=== PATIENT | male | born 1985 | race Caucasian/White ===

== ENCOUNTER 2020-09-13 18:41 | Inpatient (IN) ==
[2020-09-13] MEDS ORDERED: Ondansetron 4 MG/2 ML VIAL IVP ONE (19:13)
[2020-09-13] MEDS ORDERED: lisinopriL 20 MG TABLET PO STA (19:14)
[2020-09-13] MEDS ORDERED: 0.9 % Sodium Chloride 1,000 ML IVC ONE (19:32)
[2020-09-13 19:53] LABS: BUN/Creatinine Ratio 10 (6-26); Blood Urea Nitrogen 45 mg/dL (6-20); Calcium 8.8 mg/dL (8.6-10.3); Carbon Dioxide 28 mEq/L (23-29); Chloride 103 mEq/L (98-107); Glucose 203 mg/dL (70-105); Osmolality,Calculated 303 (280-300); Potassium 3.8 mEq/L (3.5-5.1); Sodium 138 mEq/L (136-145); eGFR For African Americans 18 (> 60); eGFR For Non-African Americans 15 (> 60)
[2020-09-13 20:36] LABS: Basophils # 0.1 K/mcL (0.0-0.2); Eosinophils # 0.4 K/mcL (0.0-0.6); Eosinophils % 3.2 %; Hematocrit 35.2 % (37.5-50.1); Hemoglobin 12.8 g/dL (12.9-16.9); Immature Granulocytes % 0.5 % (0-4); Lymphocytes # 2.2 K/mcL (0.6-4.6); Lymphocytes % 18.2 %; Mean Corpuscular HGB Conc 36.4 g/dL (31.6-35.5); Mean Corpuscular Hemoglobin 28.1 pg (28.0-33.3); Mean Corpuscular Volume 77.4 fL (83.0-100.0); Mean Platelet Volume 10.6 fL (9.4-12.4); Monocytes # 0.7 K/mcL (0.0-1.3); Monocytes % 5.9 %; Neutrophils # 8.8 K/mcL (1.6-8.9); Platelet Count 357 K/mcL (140-400); Red Blood Count 4.55 M/mcL (4.19-5.50); Red Cell Distribution Width 13.2 % (11.5-14.5); Segmented Neutrophils % 71.2 %; White Blood Count 12.3 K/mcL (4.3-11.1)
[2020-09-13 20:45] LABS: Bacteria,Urine Few per hpf (None-Few); Bilirubin,Urine Negative (Negative); Blood,Urine Moderate (Negative); Clarity,Urine Clear (Clear); Color,Urine Light-Yellow (Yellow); Glucose,Urine (UA) 150 mg/dL (Normal); Hyaline Casts,Urine Few per lpf (None Seen); Ketones,Urine Trace mg/dL (Negative); Leukocyte Esterase,Urine Negative (Negative); Mucus,Urine Few per lpf (None-Few); Nitrite,Urine Negative (Negative); Protein,Urine >=600 mg/dL (Neg-Trace); Specific Gravity,Urine 1.019 (1.010-1.025); Urobilinogen,Urine Normal (Normal)
[2020-09-13] MEDS ORDERED: Naloxone 0.4 MG/ML INJ IVP PRN (21:36)
[2020-09-13] MEDS ORDERED: Ondansetron 4 MG/2 ML VIAL IVP PRN (21:36)
[2020-09-13] MEDS ORDERED: niCARdipine 20 MG/200 ML MLS IVC ONE (21:56)
[2020-09-13] MEDS: niCARdipine 20 MG/200 ML MLS IVC SCH (21:58)
[2020-09-13 22:17] LABS: C-Reactive Protein < 5 mg/L (Less than 10); Creatine Kinase 392 Units/L (30-223); Uric Acid 6.9 mg/dL (2.3-7.6)
[2020-09-14] MEDS ORDERED: D5% in Water 1,000 ML IVC PRN (00:11)
[2020-09-14] MEDS ORDERED: *HR* Dextrose 50 % in Water (Vial) 50 ML VIAL IVP PRN (00:11)
[2020-09-14] MEDS ORDERED: Dextrose Gel 15 GM/37.5 ML TUBE PO PRN ×2 (00:11)
[2020-09-14] MEDS: Insulin LISPRO 300 UNITS/3 ML VIAL SUBQ SCH ×5 (00:48→20:41)
[2020-09-14 01:22] LABS: Sodium, Urine 73.6 mEq/L
[2020-09-14 01:44] LABS: Protein/Creatinine Ratio,Urine 9.38 mg/mg (0.00-0.20)
[2020-09-14] MEDS: Acetaminophen 325 MG TABLET PO PRN ×2 (05:19→11:14)
[2020-09-14 05:32] LABS: Basophils # 0.1 K/mcL (0.0-0.2); Basophils % 0.8 %; Eosinophils # 0.7 K/mcL (0.0-0.6); Eosinophils % 5.6 %; Hematocrit 34.3 % (37.5-50.1); Hemoglobin 12.3 g/dL (12.9-16.9); Immature Granulocytes % 0.3 % (0-4); Lymphocytes # 4.2 K/mcL (0.6-4.6); Lymphocytes % 35.3 %; Mean Corpuscular HGB Conc 35.9 g/dL (31.6-35.5); Mean Corpuscular Hemoglobin 28.3 pg (28.0-33.3); Mean Corpuscular Volume 78.9 fL (83.0-100.0); Mean Platelet Volume 9.9 fL (9.4-12.4); Monocytes # 0.8 K/mcL (0.0-1.3); Monocytes % 6.9 %; Platelet Count 342 K/mcL (140-400); Red Blood Count 4.35 M/mcL (4.19-5.50); Red Cell Distribution Width 13.3 % (11.5-14.5); Segmented Neutrophils % 51.1 %; White Blood Count 11.8 K/mcL (4.3-11.1)
[2020-09-14 05:41] LABS: Prothrombin Time 11.6 Seconds (9.4-12.1)
[2020-09-14 05:43] LABS: Estimated Average Glucose 229 mg/dl; Hemoglobin A1C 9.6 %
[2020-09-14 05:54] LABS: Albumin 2.9 g/dL (3.5-5.7); Albumin/Globulin Ratio 1.1 (1.1-2.2); Bilirubin,Total 0.2 mg/dL (0.3-1.0); Calcium 8.6 mg/dL (8.6-10.3); Chol/HDL Ratio 4.8 (0-4.9); Globulin 2.7 g/dL (2.4-3.5); Magnesium 2.1 mg/dL (1.6-2.6); Potassium 3.3 mEq/L (3.5-5.1); Total Protein 5.6 g/dL (6.4-8.9)
[2020-09-14 06:06] LABS: Thyroid Stimulating Hormone 3.653 mcIU/mL (0.340-5.600)
[2020-09-14 06:16] LABS: Vitamin B12 768 pg/mL (250-1100)
[2020-09-14 07:39] LABS: Hepatitis B Surface Antigen Nonreactive (Nonreactive)
[2020-09-14 08:07] LABS: Hepatitis C Virus Antibody Nonreactive (Nonreactive)
[2020-09-14 08:08] LABS: Hepatitis B Core IgM Nonreactive (Nonreactive)
[2020-09-14 08:10] LABS: Hepatitis A Antibody IgM Nonreactive (Nonreactive)
[2020-09-14] MEDS ORDERED: Loratadine 10 MG TABLET PO PRN (08:59)
[2020-09-14] MEDS: niCARdipine 20 MG/200 ML MLS IVC SCH ×7 (09:46→23:21)
[2020-09-14 09:59] LABS: Complement C3 117 mg/dL (87-200)
[2020-09-14] MEDS: Insulin DETEMIR 100 UNIT/ML X5UNITS SUBQ SCH ×2 (13:00→20:44)
[2020-09-14] MEDS ORDERED: Metoclopramide 10 MG/2 ML VIAL IVP ONE (15:52)
[2020-09-14] MEDS ORDERED: diazePAM 5 MG TABLET PO ONE (15:54)
[2020-09-14] MEDS: cloNIDine HCL 0.1 MG TABLET PO SCH (20:40)
[2020-09-14] MEDS ORDERED: Insulin DETEMIR 100 UNIT/ML X5UNITS SUBQ SCH (21:00)
[2020-09-15] MEDS: niCARdipine 20 MG/200 ML MLS IVC SCH (05:33)
[2020-09-15 06:34] LABS: Hematocrit 31.6 % (37.5-50.1); Mean Corpuscular HGB Conc 34.8 g/dL (31.6-35.5); Mean Corpuscular Hemoglobin 27.6 pg (28.0-33.3); Mean Corpuscular Volume 79.2 fL (83.0-100.0); Mean Platelet Volume 10.3 fL (9.4-12.4); Platelet Count 302 K/mcL (140-400); Red Blood Count 3.99 M/mcL (4.19-5.50); Red Cell Distribution Width 13.5 % (11.5-14.5); White Blood Count 9.9 K/mcL (4.3-11.1)
[2020-09-15 06:52] LABS: Calcium 8.4 mg/dL (8.6-10.3); Potassium 3.7 mEq/L (3.5-5.1)
[2020-09-15] MEDS: NIFEdipine XL (24 HR) 60 MG TAB.ER.24 PO SCH (08:26)
[2020-09-15] MEDS: cloNIDine HCL 0.1 MG TABLET PO SCH ×3 (08:26→19:35)
[2020-09-15] MEDS: Insulin LISPRO 300 UNITS/3 ML VIAL SUBQ SCH ×4 (11:49→19:35)
[2020-09-15] MEDS ORDERED: Insulin DETEMIR 100 UNIT/ML X5UNITS SUBQ SCH (12:00)
[2020-09-15] MEDS: Insulin DETEMIR 100 UNIT/ML X5UNITS SUBQ SCH (16:42)
[2020-09-16 01:48] LABS: Hematocrit 30.6 % (37.5-50.1); Hemoglobin 10.9 g/dL (12.9-16.9); Mean Corpuscular HGB Conc 35.6 g/dL (31.6-35.5); Mean Corpuscular Hemoglobin 28.2 pg (28.0-33.3); Mean Corpuscular Volume 79.1 fL (83.0-100.0); Mean Platelet Volume 10.3 fL (9.4-12.4); Platelet Count 274 K/mcL (140-400); Red Blood Count 3.87 M/mcL (4.19-5.50); Red Cell Distribution Width 13.5 % (11.5-14.5); White Blood Count 10.8 K/mcL (4.3-11.1)
[2020-09-16 02:12] LABS: Potassium 4.2 mEq/L (3.5-5.1)
[2020-09-16 07:03] LABS: ANA IgG by ELISA NONE DETECTED (None Detected)
[2020-09-16 07:43] VITALS: BP 165/107
[2020-09-16] MEDS: NIFEdipine XL (24 HR) 60 MG TAB.ER.24 PO SCH (07:56)
[2020-09-16] MEDS: cloNIDine HCL 0.1 MG TABLET PO SCH (07:56)
[2020-09-16] MEDS: Insulin LISPRO 300 UNITS/3 ML VIAL SUBQ SCH (07:58)
[2020-09-17 09:49] LABS: Metanephrine, Plasma 0.11 nmol/L (0.00-0.49)
[2020-09-17 15:23] LABS: Serine Protease-3 Antibody 10 AU/mL (0-19)
== END 2020-09-16 11:11 | disposition home or self-care (01) | DRG 199 ==
LOC: EMEROOARM 18:41 → 2ANU 18:41 → SUATTDRO 22:04 → ICNU 22:35 → 2ANU 09-15 16:31
PROVIDERS: ADMIT Student in an Organized Health Care Education/Training Program; ATTEND Internal Medicine

== ENCOUNTER 2020-09-27 07:48 | Inpatient (IN) ==
[2020-09-27] MEDS ORDERED: Ondansetron 4 MG/2 ML VIAL IVP ONE (08:18)
[2020-09-27 08:56] LABS: Basophils # 0.1 K/mcL (0.0-0.2); Basophils % 0.7 %; Eosinophils # 0.4 K/mcL (0.0-0.6); Eosinophils % 3.3 %; Hematocrit 34.7 % (37.5-50.1); Hemoglobin 12.4 g/dL (12.9-16.9); Immature Granulocytes % 0.4 % (0-4); Lymphocytes # 1.7 K/mcL (0.6-4.6); Lymphocytes % 15.8 %; Mean Corpuscular HGB Conc 35.7 g/dL (31.6-35.5); Mean Corpuscular Hemoglobin 27.8 pg (28.0-33.3); Mean Corpuscular Volume 77.8 fL (83.0-100.0); Mean Platelet Volume 10.4 fL (9.4-12.4); Monocytes # 0.4 K/mcL (0.0-1.3); Neutrophils # 8.1 K/mcL (1.6-8.9); Platelet Count 345 K/mcL (140-400); Red Blood Count 4.46 M/mcL (4.19-5.50); Red Cell Distribution Width 13.3 % (11.5-14.5); Segmented Neutrophils % 75.8 %; White Blood Count 10.7 K/mcL (4.3-11.1)
[2020-09-27 09:05] LABS: Alanine Aminotransferase 22 Units/L (7-52); Albumin 3.3 g/dL (3.5-5.7); Alkaline Phosphatase 97 Units/L (34-104); Amylase 55 Units/L (29-103); Aspartate Amino Transferase 17 Units/L (13-39); BUN/Creatinine Ratio 11 (6-26); Bilirubin,Indirect 0.4 mg/dL (0.0-1.0); Bilirubin,Total 0.4 mg/dL (0.3-1.0); Blood Urea Nitrogen 45 mg/dL (6-20); Calcium 9.1 mg/dL (8.6-10.3); Carbon Dioxide 22 mEq/L (23-29); Chloride 104 mEq/L (98-107); Globulin 3.2 g/dL (2.4-3.5); Glucose 262 mg/dL (70-105); Lipase 61 Units/L (11-82); Osmolality,Calculated 305 (280-300); Phosphorous 3.7 mg/dL (2.7-4.5); Sodium 137 mEq/L (136-145); Total Protein 6.5 g/dL (6.4-8.9); Troponin I < 0.03 ng/mL (< 0.04); eGFR For African Americans 19 (> 60); eGFR For Non-African Americans 16 (> 60)
[2020-09-27] MEDS ORDERED: 0.9 % Sodium Chloride 1,000 ML IVC ONE (10:08)
[2020-09-27] MEDS ORDERED: *HR* Labetalol 20 MG/4 ML SYRINGE IVP ONE (10:08)
[2020-09-27] MEDS ORDERED: *HR* LORazepam 2 MG/ML VIAL IVP ONE (10:21)
[2020-09-27 10:44] LABS: Bilirubin,Urine Negative (Negative); Blood,Urine Moderate (Negative); Clarity,Urine Clear (Clear); Color,Urine Light-Yellow (Yellow); Glucose,Urine (UA) >=1000 mg/dL (Normal); Granular Casts,Urine Few per lpf (None Seen); Ketones,Urine 10 mg/dL (Negative); Leukocyte Esterase,Urine Negative (Negative); Mucus,Urine Few per lpf (None-Few); Nitrite,Urine Negative (Negative); PH,Urine 6.5 pH Units (5.0-8.0); Protein,Urine >=600 mg/dL (Neg-Trace); RBC,Urine 0-3 per hpf (0-3); Specific Gravity,Urine 1.016 (1.010-1.025); Squamous Epithelial Cell,Urine Few per hpf (None-Few); Transitional Epi Cells,Urine Few per hpf (None-Few); Urobilinogen,Urine Normal (Normal)
[2020-09-27] MEDS ORDERED: Naloxone 0.4 MG/ML INJ IVP PRN (11:54)
[2020-09-27] MEDS ORDERED: Ondansetron 4 MG/2 ML VIAL IVP PRN (11:54)
[2020-09-27] MEDS ORDERED: Acetaminophen 325 MG TABLET PO PRN (11:54)
[2020-09-27] MEDS ORDERED: hydrOXYzine pamoate 25 MG CAPSULE PO PRN (11:59)
[2020-09-27] MEDS ORDERED: NIFEdipine XL (24 HR) 60 MG TAB.ER.24 PO SCH (12:00)
[2020-09-27] MEDS ORDERED: Ringers Solution, Lactated 1,000 ML IVC ONE (12:29)
[2020-09-27 13:01] LABS: Creatine Kinase 308 Units/L (30-223)
[2020-09-27 13:16] LABS: VBG HCO3 16 mEq/L (21-27); VBG PCO2 30 mmHg (41-51); VBG PH 7.33 pH Units (7.32-7.42); VBG PO2 185 mmHg (25-50)
[2020-09-27] MEDS: *HR* Heparin 5,000 UNIT/ML VIAL SQ SCH ×2 (13:36→22:11)
[2020-09-27] MEDS ORDERED: cloNIDine HCL 0.1 MG TABLET PO SCH (15:00)
[2020-09-27 16:07] LABS: Adenovirus Not Detected (Not Detect); Bordetella Pertussis Not Detected (Not Detect); Chlamydophila pneumoniae Not Detected (Not Detect); Coronavirus 229E Not Detected (Not Detect); Coronavirus HKU1 Not Detected (Not Detect); Coronavirus NL63 Not Detected (Not Detect); Coronavirus OC43 Not Detected (Not Detect); Human Metapneumovirus Not Detected (Not Detect); Human Rhinovirus/Enterovirus Not Detected (Not Detect); Influenza A Subtype 2009 H1 Not Detected (Not Detect); Influenza B Not Detected (Not Detect); Mycoplasma pneumoniae Not Detected (Not Detect); Parainfluenza Virus 1 Not Detected (Not Detect); Parainfluenza Virus 2 Not Detected (Not Detect); Parainfluenza Virus 3 Not Detected (Not Detect); Parainfluenza Virus 4 Not Detected (Not Detect); Respiratory Syncytial Virus Not Detected (Not Detect); SARS-CoV-2 Not Detected (Not Detect)
[2020-09-27] MEDS: NIFEdipine XL (24 HR) 30 MG TAB.ER.24 PO SCH (17:59)
[2020-09-27] MEDS ORDERED: Insulin DETEMIR 100 UNIT/ML X5UNITS SUBQ SCH (18:00)
[2020-09-27] MEDS: cloNIDine HCL 0.1 MG TABLET PO SCH (20:15)
[2020-09-28] MEDS: *HR* Heparin 5,000 UNIT/ML VIAL SQ SCH ×3 (05:24→20:37)
[2020-09-28 06:14] LABS: Hematocrit 31.4 % (37.5-50.1); Hemoglobin 10.9 g/dL (12.9-16.9); Mean Corpuscular HGB Conc 34.7 g/dL (31.6-35.5); Mean Corpuscular Hemoglobin 27.3 pg (28.0-33.3); Mean Corpuscular Volume 78.7 fL (83.0-100.0); Mean Platelet Volume 10.3 fL (9.4-12.4); Platelet Count 305 K/mcL (140-400); Red Blood Count 3.99 M/mcL (4.19-5.50); Red Cell Distribution Width 13.3 % (11.5-14.5); White Blood Count 8.3 K/mcL (4.3-11.1)
[2020-09-28] MEDS ORDERED: *HR* Dextrose 50 % in Water (Vial) 50 ML VIAL IVP PRN (06:15)
[2020-09-28] MEDS ORDERED: Dextrose Gel 15 GM/37.5 ML TUBE PO PRN ×2 (06:15)
[2020-09-28] MEDS ORDERED: D5% in Water 1,000 ML IVC PRN (06:15)
[2020-09-28 06:53] LABS: Albumin 2.8 g/dL (3.5-5.7); Albumin/Globulin Ratio 1.1 (1.1-2.2); Bilirubin,Total 0.2 mg/dL (0.3-1.0); Calcium 8.7 mg/dL (8.6-10.3); Globulin 2.5 g/dL (2.4-3.5); Magnesium 1.9 mg/dL (1.6-2.6); Phosphorous 4.2 mg/dL (2.7-4.5); Potassium 3.8 mEq/L (3.5-5.1); Total Protein 5.3 g/dL (6.4-8.9)
[2020-09-28] MEDS: Insulin LISPRO 300 UNITS/3 ML VIAL SUBQ SCH ×4 (08:28→20:38)
[2020-09-28] MEDS: cloNIDine HCL 0.1 MG TABLET PO SCH ×2 (08:36→19:39)
[2020-09-28] MEDS: NIFEdipine XL (24 HR) 30 MG TAB.ER.24 PO SCH (08:36)
[2020-09-28] MEDS: carvediloL 6.25 MG TABLET PO SCH (16:23)
[2020-09-28] MEDS: Topiramate 25 MG CAP.SPRINK PO SCH (19:39)
[2020-09-28] MEDS: Insulin DETEMIR 100 UNIT/ML X5UNITS SUBQ SCH (20:36)
[2020-09-29 02:43] LABS: Basophils # 0.1 K/mcL (0.0-0.2); Basophils % 0.6 %; Eosinophils # 0.4 K/mcL (0.0-0.6); Eosinophils % 4.6 %; Hematocrit 29.4 % (37.5-50.1); Hemoglobin 10.2 g/dL (12.9-16.9); Immature Granulocytes % 0.2 % (0-4); Lymphocytes # 2.8 K/mcL (0.6-4.6); Lymphocytes % 33.4 %; Mean Corpuscular HGB Conc 34.7 g/dL (31.6-35.5); Mean Corpuscular Hemoglobin 27.3 pg (28.0-33.3); Mean Corpuscular Volume 78.8 fL (83.0-100.0); Mean Platelet Volume 10.2 fL (9.4-12.4); Monocytes # 0.5 K/mcL (0.0-1.3); Monocytes % 6.4 %; Neutrophils # 4.6 K/mcL (1.6-8.9); Platelet Count 285 K/mcL (140-400); Red Blood Count 3.73 M/mcL (4.19-5.50); Red Cell Distribution Width 13.4 % (11.5-14.5); Segmented Neutrophils % 54.8 %; White Blood Count 8.4 K/mcL (4.3-11.1)
[2020-09-29 03:00] LABS: Calcium 8.3 mg/dL (8.6-10.3); Potassium 3.7 mEq/L (3.5-5.1)
[2020-09-29] MEDS: *HR* Heparin 5,000 UNIT/ML VIAL SQ SCH ×2 (05:56→10:34)
[2020-09-29] MEDS: Insulin LISPRO 300 UNITS/3 ML VIAL SUBQ SCH ×4 (07:26→21:47)
[2020-09-29] MEDS: Insulin DETEMIR 100 UNIT/ML X5UNITS SUBQ SCH ×2 (07:31→21:48)
[2020-09-29] MEDS: Topiramate 25 MG CAP.SPRINK PO SCH (07:36)
[2020-09-29] MEDS: NIFEdipine XL (24 HR) 30 MG TAB.ER.24 PO SCH (07:36)
[2020-09-29] MEDS: carvediloL 6.25 MG TABLET PO SCH ×2 (07:36→16:30)
[2020-09-29] MEDS: cloNIDine HCL 0.1 MG TABLET PO SCH ×2 (07:36→21:31)
[2020-09-29] MEDS ORDERED: Metoclopramide 10 MG/2 ML VIAL IVP SCH (14:15)
[2020-09-29] MEDS ORDERED: Insulin LISPRO 300 UNITS/3 ML VIAL SUBQ ONE (16:13)
[2020-09-29] MEDS: hydrALAZINE 25 MG TABLET PO SCH ×2 (17:31→23:50)
[2020-09-30] MEDS ORDERED: Insulin LISPRO 300 UNITS/3 ML VIAL SUBQ ONE ×3 (00:02→17:41)
[2020-09-30 04:13] LABS: Basophils # 0.1 K/mcL (0.0-0.2); Basophils % 0.9 %; Eosinophils # 0.4 K/mcL (0.0-0.6); Hematocrit 33.6 % (37.5-50.1); Immature Granulocytes % 0.2 % (0-4); Lymphocytes # 2.9 K/mcL (0.6-4.6); Lymphocytes % 33.5 %; Mean Corpuscular HGB Conc 35.7 g/dL (31.6-35.5); Mean Corpuscular Hemoglobin 28.2 pg (28.0-33.3); Mean Corpuscular Volume 79.1 fL (83.0-100.0); Mean Platelet Volume 9.9 fL (9.4-12.4); Monocytes # 0.6 K/mcL (0.0-1.3); Monocytes % 6.5 %; Neutrophils # 4.6 K/mcL (1.6-8.9); Platelet Count 303 K/mcL (140-400); Red Blood Count 4.25 M/mcL (4.19-5.50); Red Cell Distribution Width 13.4 % (11.5-14.5); Segmented Neutrophils % 53.9 %; White Blood Count 8.6 K/mcL (4.3-11.1)
[2020-09-30 04:38] LABS: Calcium 8.4 mg/dL (8.6-10.3); Potassium 3.8 mEq/L (3.5-5.1)
[2020-09-30] MEDS ORDERED: *HR* Promethazine 25 MG/ML VIAL IM ONE (08:01)
[2020-09-30] MEDS: Insulin LISPRO 300 UNITS/3 ML VIAL SUBQ SCH ×5 (08:46→20:07)
[2020-09-30] MEDS: Insulin DETEMIR 100 UNIT/ML X5UNITS SUBQ SCH ×2 (11:10→20:07)
[2020-09-30] MEDS: cloNIDine HCL 0.1 MG TABLET PO SCH ×2 (11:11→20:07)
[2020-09-30] MEDS: Topiramate 25 MG CAP.SPRINK PO SCH (11:11)
[2020-09-30] MEDS: NIFEdipine XL (24 HR) 30 MG TAB.ER.24 PO SCH (11:11)
[2020-09-30] MEDS: hydrALAZINE 25 MG TABLET PO SCH ×3 (11:11→23:55)
[2020-09-30] MEDS: carvediloL 6.25 MG TABLET PO SCH ×2 (11:11→16:35)
[2020-09-30] MEDS ORDERED: 0.9 % Sodium Chloride 1,000 ML IVC SCH (13:15)
[2020-09-30] MEDS: niCARdipine 20 MG/200 ML MLS IVC SCH ×2 (18:04→18:07)
[2020-10-01 07:19] LABS: Basophils # 0.1 K/mcL (0.0-0.2); Basophils % 0.9 %; Eosinophils # 0.3 K/mcL (0.0-0.6); Hematocrit 30.8 % (37.5-50.1); Hemoglobin 10.7 g/dL (12.9-16.9); Immature Granulocytes % 0.5 % (0-4); Lymphocytes # 2.4 K/mcL (0.6-4.6); Lymphocytes % 27.6 %; Mean Corpuscular HGB Conc 34.7 g/dL (31.6-35.5); Mean Corpuscular Hemoglobin 28.3 pg (28.0-33.3); Mean Corpuscular Volume 81.5 fL (83.0-100.0); Mean Platelet Volume 10.1 fL (9.4-12.4); Monocytes # 0.6 K/mcL (0.0-1.3); Monocytes % 6.8 %; Neutrophils # 5.3 K/mcL (1.6-8.9); Platelet Count 281 K/mcL (140-400); Red Blood Count 3.78 M/mcL (4.19-5.50); Red Cell Distribution Width 13.9 % (11.5-14.5); Segmented Neutrophils % 61.2 %; White Blood Count 8.7 K/mcL (4.3-11.1)
[2020-10-01 07:40] LABS: Calcium 8.4 mg/dL (8.6-10.3); Potassium 4.2 mEq/L (3.5-5.1)
[2020-10-01] MEDS: NIFEdipine XL (24 HR) 30 MG TAB.ER.24 PO SCH (09:43)
[2020-10-01] MEDS: hydrALAZINE 25 MG TABLET PO SCH ×3 (09:43→23:30)
[2020-10-01] MEDS: carvediloL 6.25 MG TABLET PO SCH ×2 (09:43→17:22)
[2020-10-01] MEDS: cloNIDine HCL 0.1 MG TABLET PO SCH ×2 (09:43→21:07)
[2020-10-01] MEDS: Insulin DETEMIR 100 UNIT/ML X5UNITS SUBQ SCH ×2 (09:43→21:07)
[2020-10-01] MEDS: Topiramate 25 MG CAP.SPRINK PO SCH (09:43)
[2020-10-01] MEDS: Insulin LISPRO 300 UNITS/3 ML VIAL SUBQ SCH ×4 (09:44→21:07)
[2020-10-01 14:31] LABS: Total Volume 24 Hour,Urine 3.15 Liters (0.80-1.80)
[2020-10-01 16:40] LABS: Creatinine 24 Hour,Urine 1701 mg/day (800-2000); Creatinine,Urine 54 mg/dL; Microalbumin,Urine > 1350 mg/L; Total Protein 24 Hour,Urine 14963 mg/day (50-80)
[2020-10-02 05:27] LABS: Basophils # 0.1 K/mcL (0.0-0.2); Basophils % 0.8 %; Eosinophils # 0.5 K/mcL (0.0-0.6); Eosinophils % 4.8 %; Hematocrit 29.6 % (37.5-50.1); Hemoglobin 10.5 g/dL (12.9-16.9); Immature Granulocytes % 0.5 % (0-4); Lymphocytes # 3.2 K/mcL (0.6-4.6); Lymphocytes % 33.1 %; Mean Corpuscular HGB Conc 35.5 g/dL (31.6-35.5); Mean Corpuscular Hemoglobin 28.2 pg (28.0-33.3); Mean Corpuscular Volume 79.6 fL (83.0-100.0); Mean Platelet Volume 10.2 fL (9.4-12.4); Monocytes # 0.7 K/mcL (0.0-1.3); Monocytes % 6.9 %; Neutrophils # 5.2 K/mcL (1.6-8.9); Platelet Count 283 K/mcL (140-400); Red Blood Count 3.72 M/mcL (4.19-5.50); Red Cell Distribution Width 13.6 % (11.5-14.5); Segmented Neutrophils % 53.9 %; White Blood Count 9.6 K/mcL (4.3-11.1)
[2020-10-02 05:35] LABS: Calcium 8.2 mg/dL (8.6-10.3); Potassium 3.9 mEq/L (3.5-5.1)
[2020-10-02 08:17] VITALS: BP 180/107
[2020-10-02] MEDS: hydrALAZINE 25 MG TABLET PO SCH (08:22)
[2020-10-02] MEDS: Topiramate 25 MG CAP.SPRINK PO SCH (08:23)
[2020-10-02] MEDS: NIFEdipine XL (24 HR) 30 MG TAB.ER.24 PO SCH (08:23)
[2020-10-02] MEDS: Insulin LISPRO 300 UNITS/3 ML VIAL SUBQ SCH (08:23)
[2020-10-02] MEDS: carvediloL 6.25 MG TABLET PO SCH (08:23)
[2020-10-02] MEDS: cloNIDine HCL 0.1 MG TABLET PO SCH (08:23)
[2020-10-02] MEDS: Insulin DETEMIR 100 UNIT/ML X5UNITS SUBQ SCH (08:24)
== END 2020-10-02 10:45 | disposition home or self-care (01) | DRG 469 ==
LOC: 3ANU 07:48 → EMEROOARM 07:48 → SUATTDRO 11:39 → 3ANU 12:25
PROVIDERS: ADMIT Internal Medicine; ATTEND Student in an Organized Health Care Education/Training Program

== ENCOUNTER 2021-12-20 09:10 | Inpatient (IN) ==
[2021-12-20] MEDS ORDERED: Ondansetron 4 MG/2 ML VIAL IVP ONE (10:39)
[2021-12-20] MEDS ORDERED: Pantoprazole 80 MG in 0.9 % Sodium Chloride 50 ML IVPB ONE (10:39)
[2021-12-20] MEDS ORDERED: Iopamidol - 370 500 ML MLS IVP ONE (10:46)
[2021-12-20 11:23] LABS: Basophils % 0.4 %; Eosinophils # 0.1 K/mcL (0.0-0.6); Eosinophils % 0.6 %; Hematocrit 25.7 % (37.5-50.1); Hemoglobin 8.5 g/dL (12.9-16.9); Immature Granulocytes % 0.4 % (0-4); Lymphocytes # 0.6 K/mcL (0.6-4.6); Lymphocytes % 5.3 %; Mean Corpuscular HGB Conc 33.1 g/dL (31.6-35.5); Mean Corpuscular Hemoglobin 29.6 pg (28.0-33.3); Monocytes # 0.6 K/mcL (0.0-1.3); Monocytes % 5.5 %; Neutrophils # 9.8 K/mcL (1.6-8.9); Platelet Count 273 K/mcL (140-400); Red Blood Count 2.87 M/mcL (4.19-5.50); Red Cell Distribution Width 15.7 % (11.5-14.5); Segmented Neutrophils % 87.8 %; White Blood Count 11.2 K/mcL (4.3-11.1)
[2021-12-20 11:26] LABS: Mean Corpuscular Volume 89.5 fL (83.0-100.0)
[2021-12-20] MEDS ORDERED: Famotidine 20 MG/2 ML VIAL IVP ONE (11:26)
[2021-12-20 11:47] LABS: Troponin I 0.07 ng/mL (< 0.04)
[2021-12-20 12:08] LABS: Albumin 3.9 g/dL (3.5-5.7); Albumin/Globulin Ratio 1.3 (1.1-2.2); Bilirubin,Total 0.5 mg/dL (0.3-1.0); Calcium 7.8 mg/dL (8.6-10.3); Magnesium 2.8 mg/dL (1.6-2.6); Potassium 5.3 mEq/L (3.5-5.1); Total Protein 6.9 g/dL (6.4-8.9)
[2021-12-20 12:26] LABS: INR 1.1; Prothrombin Time 12.2 Seconds (9.4-12.1)
[2021-12-20 12:29] LABS: Activated Partial Thrombo Time 32.6 Seconds (26.0-36.0)
[2021-12-20] MEDS ORDERED: Insulin Regular, Human 100 UNIT/ML IV ONE (12:30)
[2021-12-20] MEDS ORDERED: Insulin Human Regular 8 UNIT in 0.9 % Sodium Chloride 10 ML IV ONE (12:33)
[2021-12-20] MEDS ORDERED: 0.9 % Sodium Chloride 500 ML IVC ONE (12:44)
[2021-12-20 13:39] LABS: VBG HCO3 18 mEq/L (21-27); VBG PCO2 33 mmHg (41-51); VBG PH 7.34 pH Units (7.32-7.42); VBG PO2 146 mmHg (25-50)
[2021-12-20] MEDS ORDERED: Naloxone 0.4 MG/ML INJ IVP PRN (14:02)
[2021-12-20] MEDS ORDERED: Melatonin 3 MG TABLET PO PRN (14:02)
[2021-12-20] MEDS ORDERED: Insulin Regular, Human 100 UNIT/ML IV PRN ×2 (15:13)
[2021-12-20] MEDS ORDERED: D5% in 0.45% NACL 1,000 ML IVC PRN (15:13)
[2021-12-20] MEDS ORDERED: Perflutren Lipid Microsphere 1.3 ML in 0.9 % Sodium Chloride 8.7 ML IVP PRN (15:27)
[2021-12-20] MEDS: Acetaminophen 325 MG TABLET PO PRN (15:48)
[2021-12-20 16:12] LABS: Hemoglobin 7.5 g/dL (12.9-16.9)
[2021-12-20 16:32] LABS: % Iron Saturation 8 % (20-55); Iron 20 mcg/dL (65-175); Transferrin 185 mg/dL (203-362)
[2021-12-20 16:56] LABS: Calcium 7.4 mg/dL (8.6-10.3); Phosphorous 9.1 mg/dL (2.7-4.5); Potassium 4.4 mEq/L (3.5-5.1); Troponin I 0.08 ng/mL (< 0.04)
[2021-12-20 17:00] LABS: Hepatitis B Surface Antigen Nonreactive (Nonreactive)
[2021-12-20 17:29] LABS: Bilirubin,Urine Negative (Negative); Blood,Urine Large (Negative); Clarity,Urine Clear (Clear); Color,Urine Light-Yellow (Yellow); Glucose,Urine (UA) >=1000 mg/dL (Normal); Ketones,Urine 10 mg/dL (Negative); Leukocyte Esterase,Urine Negative (Negative); Mucus,Urine Few per lpf (None-Few); Nitrite,Urine Negative (Negative); PH,Urine 6.5 pH Units (5.0-8.0); Protein,Urine >=600 mg/dL (Neg-Trace); Specific Gravity,Urine 1.022 (1.010-1.025); Squamous Epithelial Cell,Urine Few per hpf (None-Few); Urobilinogen,Urine Normal (Normal); WBC,Urine 15-30 per hpf (0-3)
[2021-12-20 17:29] LABS: Hepatitis B Core IgM Nonreactive (Nonreactive); Hepatitis C Virus Antibody Nonreactive (Nonreactive)
[2021-12-20 17:31] LABS: Hepatitis A Antibody IgM Nonreactive (Nonreactive)
[2021-12-20] MEDS: Bumetanide 1 MG/4 ML VIAL IVP SCH (17:57)
[2021-12-20] MEDS: Pantoprazole 40 MG VIAL IVP SCH (17:58)
[2021-12-20] MEDS: 0.45 % Sodium Chloride w/KCl 20 MEQ/1,000 ML MLS IVC SCH ×4 (18:30→23:55)
[2021-12-20] MEDS: carvediloL 6.25 MG TABLET PO SCH (18:56)
[2021-12-20] MEDS ORDERED: Perit. Dialysis with Dex 4.25% 6,000 ML PERITONEAL SCH (19:00)
[2021-12-20] MEDS: Sucroferric Oxyhydroxide [Velphoro] 500 MG Tab.Chew PO SCH (20:25)
[2021-12-20 20:38] LABS: Calcium 7.5 mg/dL (8.6-10.3); Potassium 4.2 mEq/L (3.5-5.1); Troponin I 0.07 ng/mL (< 0.04)
[2021-12-20] MEDS ORDERED: carvediloL 6.25 MG TABLET PO SCH (21:00)
[2021-12-20] MEDS: Ondansetron 4 MG/2 ML VIAL IVP PRN (22:06)
[2021-12-20] MEDS: D5% in 0.45% NACL w KCl 20 MEQ/1,000 ML MLS IVC PRN (23:50)
[2021-12-21 00:53] LABS: Basophils % 0.2 %; Eosinophils # 0.3 K/mcL (0.0-0.6); Hematocrit 22.5 % (37.5-50.1); Immature Granulocytes % 0.5 % (0-4); Lymphocytes # 1.9 K/mcL (0.6-4.6); Lymphocytes % 14.2 %; Mean Corpuscular HGB Conc 35.6 g/dL (31.6-35.5); Mean Corpuscular Hemoglobin 29.2 pg (28.0-33.3); Mean Platelet Volume 9.7 fL (9.4-12.4); Monocytes # 1.4 K/mcL (0.0-1.3); Monocytes % 10.7 %; Neutrophils # 9.6 K/mcL (1.6-8.9); Platelet Count 276 K/mcL (140-400); Red Blood Count 2.74 M/mcL (4.19-5.50); Red Cell Distribution Width 14.9 % (11.5-14.5); Segmented Neutrophils % 72.4 %; White Blood Count 13.2 K/mcL (4.3-11.1)
[2021-12-21 00:54] LABS: Mean Corpuscular Volume 82.1 fL (83.0-100.0)
[2021-12-21 00:56] LABS: VBG HCO3 24 mEq/L (21-27); VBG PCO2 40 mmHg (41-51); VBG PH 7.39 pH Units (7.32-7.42); VBG PO2 201 mmHg (25-50)
[2021-12-21 01:00] LABS: INR 1.1; Prothrombin Time 12.8 Seconds (9.4-12.1)
[2021-12-21 01:11] LABS: Magnesium 2.8 mg/dL (1.6-2.6); Phosphorous 9.1 mg/dL (2.7-4.5)
[2021-12-21 01:13] LABS: Estimated Average Glucose 186 mg/dl; Hemoglobin A1C 8.1 %
[2021-12-21 01:14] LABS: Chol/HDL Ratio 2.4 (0-4.9)
[2021-12-21 01:31] LABS: Thyroid Stimulating Hormone 4.786 mcIU/mL (0.340-5.600); Troponin I 0.08 ng/mL (< 0.04)
[2021-12-21] MEDS: 0.45 % Sodium Chloride w/KCl 20 MEQ/1,000 ML MLS IVC SCH ×5 (02:58→10:45)
[2021-12-21] MEDS: D5% in 0.45% NACL w KCl 20 MEQ/1,000 ML MLS IVC PRN ×2 (04:01→08:07)
[2021-12-21] MEDS: Pantoprazole 40 MG VIAL IVP SCH ×2 (06:29→16:41)
[2021-12-21] MEDS: *HR* Dextrose 50 % in Water (Syg) 50 ML SYRINGE IVP PRN ×3 (06:36→10:40)
[2021-12-21 06:39] LABS: Calcium 8.9 mg/dL (8.6-10.3); Potassium 4.1 mEq/L (3.5-5.1)
[2021-12-21] MEDS: Ondansetron 4 MG/2 ML VIAL IVP PRN ×2 (07:59→19:40)
[2021-12-21] MEDS: Topiramate 25 MG TABLET PO SCH (08:11)
[2021-12-21] MEDS: carvediloL 6.25 MG TABLET PO SCH ×2 (08:12→16:42)
[2021-12-21] MEDS: Sucroferric Oxyhydroxide [Velphoro] 500 MG Tab.Chew PO SCH ×3 (08:14→23:29)
[2021-12-21] MEDS ORDERED: Insulin DETEMIR 100 UNIT/ML X5UNITS SUBQ ONE (08:26)
[2021-12-21] MEDS ORDERED: *HR* Dextrose 50 % in Water (Syg) 50 ML SYRINGE IVP PRN (10:43)
[2021-12-21] MEDS ORDERED: Dextrose Gel 15 GM/37.5 ML TUBE PO PRN ×2 (10:43)
[2021-12-21] MEDS ORDERED: D5% in Water 1,000 ML IVC PRN (10:43)
[2021-12-21] MEDS: Bumetanide 1 MG/4 ML VIAL IVP SCH ×2 (10:45→16:42)
[2021-12-21] MEDS ORDERED: 0.9 % Sodium Chloride 1,000 ML IVC SCH (10:45)
[2021-12-21] MEDS ORDERED: Insulin LISPRO 300 UNITS/3 ML VIAL SUBQ SCH (12:00)
[2021-12-21 12:40] LABS: Hematocrit 21.6 % (37.5-50.1); Hemoglobin 7.7 g/dL (12.9-16.9)
[2021-12-21 12:59] LABS: Calcium 8.9 mg/dL (8.6-10.3); Potassium 4.8 mEq/L (3.5-5.1)
[2021-12-21] MEDS ORDERED: Lidocaine -MPF 2% 5 ML VIAL ONE (13:17)
[2021-12-21] MEDS ORDERED: *HR* Propofol 200 MG/20 ML VIAL IVP ONE (13:18)
[2021-12-21] MEDS: Insulin LISPRO 300 UNITS/3 ML VIAL SUBQ SCH ×2 (16:36→20:31)
[2021-12-21] MEDS: Acetaminophen 325 MG TABLET PO PRN (16:41)
[2021-12-21] MEDS ORDERED: Perit. Dialysis with Dex 4.25% 6,000 ML PERITONEAL SCH (19:00)
[2021-12-22] MEDS ORDERED: Gabapentin 300 MG CAPSULE PO SCH (00:30)
[2021-12-22] MEDS: Ondansetron 4 MG/2 ML VIAL IVP PRN ×2 (04:31→23:10)
[2021-12-22 04:46] LABS: Red Cell Distribution Width 15.9 % (11.5-14.5)
[2021-12-22 04:48] LABS: Basophils % 0.3 %
[2021-12-22 04:51] LABS: Eosinophils % 0.3 %; Hemoglobin 9.2 g/dL (12.9-16.9); White Blood Count 9.6 K/mcL (4.3-11.1)
[2021-12-22 04:53] LABS: Hematocrit 27.8 % (37.5-50.1); Immature Granulocytes % 0.5 % (0-4); Immature Platelets 1.7 % (1.1-6.1); Lymphocytes # 0.4 K/mcL (0.6-4.6); Lymphocytes % 4.6 %; Mean Corpuscular HGB Conc 33.1 g/dL (31.6-35.5); Mean Corpuscular Hemoglobin 29.2 pg (28.0-33.3); Mean Corpuscular Volume 88.3 fL (83.0-100.0); Mean Platelet Volume 10.8 fL (9.4-12.4); Monocytes # 0.5 K/mcL (0.0-1.3); Monocytes % 4.9 %; Neutrophils # 8.6 K/mcL (1.6-8.9); Platelet Count 248 K/mcL (140-400); Red Blood Count 3.15 M/mcL (4.19-5.50); Segmented Neutrophils % 89.4 %
[2021-12-22 05:07] LABS: Magnesium 2.6 mg/dL (1.6-2.6)
[2021-12-22] MEDS: Insulin LISPRO 300 UNITS/3 ML VIAL SUBQ SCH ×4 (05:44→20:28)
[2021-12-22 06:02] LABS: Calcium 8.9 mg/dL (8.6-10.3); Potassium 5.7 mEq/L (3.5-5.1)
[2021-12-22] MEDS ORDERED: Insulin Regular, Human 100 UNIT/ML IV PRN ×2 (06:06)
[2021-12-22] MEDS ORDERED: D5% in 0.45% NACL 1,000 ML IVC PRN (06:06)
[2021-12-22] MEDS: Pantoprazole 40 MG VIAL IVP SCH ×2 (06:31→20:47)
[2021-12-22 09:16] LABS: VBG HCO3 21 mEq/L (21-27); VBG PCO2 32 mmHg (41-51); VBG PH 7.41 pH Units (7.32-7.42); VBG PO2 198 mmHg (25-50)
[2021-12-22 09:34] LABS: Calcium 8.3 mg/dL (8.6-10.3); Potassium 4.7 mEq/L (3.5-5.1)
[2021-12-22] MEDS: Bumetanide 1 MG/4 ML VIAL IVP SCH ×2 (10:25→20:46)
[2021-12-22] MEDS: Topiramate 25 MG TABLET PO SCH (10:25)
[2021-12-22] MEDS: carvediloL 6.25 MG TABLET PO SCH ×2 (10:29→20:47)
[2021-12-22] MEDS: Sucroferric Oxyhydroxide [Velphoro] 500 MG Tab.Chew PO SCH ×3 (10:41→20:48)
[2021-12-22 11:03] LABS: Calcium 8.6 mg/dL (8.6-10.3); Potassium 4.5 mEq/L (3.5-5.1)
[2021-12-22 11:49] LABS: Calcium 8.7 mg/dL (8.6-10.3); Potassium 4.6 mEq/L (3.5-5.1)
[2021-12-22 14:56] LABS: Calcium 8.6 mg/dL (8.6-10.3); Potassium 4.5 mEq/L (3.5-5.1)
[2021-12-22 16:15] LABS: VBG HCO3 25 mEq/L (21-27); VBG PCO2 44 mmHg (41-51); VBG PH 7.36 pH Units (7.32-7.42); VBG PO2 180 mmHg (25-50)
[2021-12-22] MEDS: 0.45 % Sodium Chloride w/KCl 20 MEQ/1,000 ML MLS IVC PRN ×2 (16:38→20:16)
[2021-12-22] MEDS ORDERED: Perit. Dialysis with Dex 2.5 % 12,000 ML PERITONEAL ONE (19:00)
[2021-12-22] MEDS ORDERED: Gabapentin 100 MG CAPSULE PO ONE (21:00)
[2021-12-22] MEDS: D5% in 0.45% NACL w KCl 20 MEQ/1,000 ML MLS IVC PRN (21:12)
[2021-12-22 21:18] LABS: VBG HCO3 25 mEq/L (21-27); VBG PCO2 42 mmHg (41-51); VBG PH 7.39 pH Units (7.32-7.42); VBG PO2 127 mmHg (25-50)
[2021-12-22 21:34] LABS: Calcium 8.6 mg/dL (8.6-10.3); Potassium 4.8 mEq/L (3.5-5.1)
[2021-12-23] MEDS: D5% in 0.45% NACL w KCl 20 MEQ/1,000 ML MLS IVC PRN ×4 (00:48→17:06)
[2021-12-23 01:10] LABS: VBG HCO3 25 mEq/L (21-27); VBG PCO2 44 mmHg (41-51); VBG PH 7.36 pH Units (7.32-7.42); VBG PO2 164 mmHg (25-50)
[2021-12-23 01:26] LABS: Calcium 8.7 mg/dL (8.6-10.3); Potassium 4.5 mEq/L (3.5-5.1)
[2021-12-23 04:34] LABS: VBG HCO3 25 mEq/L (21-27); VBG PCO2 43 mmHg (41-51); VBG PH 7.37 pH Units (7.32-7.42); VBG PO2 166 mmHg (25-50)
[2021-12-23 04:45] LABS: Basophils % 0.3 %; Eosinophils # 0.1 K/mcL (0.0-0.6); Eosinophils % 0.8 %; Hematocrit 21.9 % (37.5-50.1); Hemoglobin 7.7 g/dL (12.9-16.9); Immature Granulocytes % 0.8 % (0-4); Mean Corpuscular HGB Conc 35.2 g/dL (31.6-35.5); Mean Corpuscular Hemoglobin 28.9 pg (28.0-33.3); Mean Corpuscular Volume 82.3 fL (83.0-100.0); Mean Platelet Volume 9.9 fL (9.4-12.4); Monocytes % 8.9 %; Platelet Count 233 K/mcL (140-400); Red Blood Count 2.66 M/mcL (4.19-5.50); Red Cell Distribution Width 14.8 % (11.5-14.5); Segmented Neutrophils % 71.2 %; White Blood Count 11.2 K/mcL (4.3-11.1)
[2021-12-23 04:56] LABS: Albumin 3.1 g/dL (3.5-5.7); Calcium 8.6 mg/dL (8.6-10.3); Phosphorous 8.8 mg/dL (2.7-4.5); Potassium 4.2 mEq/L (3.5-5.1)
[2021-12-23] MEDS: Pantoprazole 40 MG VIAL IVP SCH (04:58)
[2021-12-23 07:52] LABS: VBG HCO3 26 mEq/L (21-27); VBG PCO2 44 mmHg (41-51); VBG PH 7.37 pH Units (7.32-7.42); VBG PO2 166 mmHg (25-50)
[2021-12-23] MEDS: Insulin LISPRO 300 UNITS/3 ML VIAL SUBQ SCH ×4 (07:54→19:30)
[2021-12-23] MEDS: Acetaminophen 325 MG TABLET PO PRN (08:01)
[2021-12-23] MEDS: carvediloL 6.25 MG TABLET PO SCH ×2 (08:01→17:08)
[2021-12-23] MEDS: Topiramate 25 MG TABLET PO SCH (08:01)
[2021-12-23] MEDS: Bumetanide 1 MG/4 ML VIAL IVP SCH ×2 (08:03→17:07)
[2021-12-23 08:09] LABS: Calcium 8.5 mg/dL (8.6-10.3); Potassium 4.3 mEq/L (3.5-5.1)
[2021-12-23] MEDS: Ondansetron 4 MG/2 ML VIAL IVP PRN (09:52)
[2021-12-23] MEDS: Sucroferric Oxyhydroxide [Velphoro] 500 MG Tab.Chew PO SCH (10:47)
[2021-12-23 13:22] LABS: VBG HCO3 22 mEq/L (21-27); VBG PCO2 32 mmHg (41-51); VBG PH 7.46 pH Units (7.32-7.42); VBG PO2 190 mmHg (25-50)
[2021-12-23 13:39] LABS: Calcium 8.6 mg/dL (8.6-10.3); Potassium 4.7 mEq/L (3.5-5.1)
[2021-12-23 18:03] LABS: VBG HCO3 23 mEq/L (21-27); VBG PCO2 43 mmHg (41-51); VBG PH 7.34 pH Units (7.32-7.42); VBG PO2 163 mmHg (25-50)
[2021-12-23 18:16] LABS: Albumin/Globulin Ratio 1.1 (1.1-2.2); Bilirubin,Direct 0.1 mg/dL (0.0-0.2); Bilirubin,Indirect 0.3 mg/dL (0.0-1.0); Bilirubin,Total 0.4 mg/dL (0.3-1.0); Calcium 8.7 mg/dL (8.6-10.3); Globulin 2.8 g/dL (2.4-3.5); Potassium 4.6 mEq/L (3.5-5.1); Total Protein 5.8 g/dL (6.4-8.9)
[2021-12-23] MEDS ORDERED: Perit. Dialysis with Dex 2.5 % 12,000 ML PERITONEAL ONE (19:00)
[2021-12-23 21:56] LABS: VBG HCO3 23 mEq/L (21-27); VBG PCO2 42 mmHg (41-51); VBG PH 7.35 pH Units (7.32-7.42); VBG PO2 170 mmHg (25-50)
[2021-12-23 22:13] LABS: Calcium 8.7 mg/dL (8.6-10.3); Potassium 4.5 mEq/L (3.5-5.1)
[2021-12-24] MEDS: D5% in 0.45% NACL w KCl 20 MEQ/1,000 ML MLS IVC PRN ×2 (00:07→07:27)
[2021-12-24] MEDS: *HR* Dextrose 50 % in Water (Syg) 50 ML SYRINGE IVP PRN ×4 (00:07→09:45)
[2021-12-24 02:09] LABS: VBG HCO3 24 mEq/L (21-27); VBG PCO2 43 mmHg (41-51); VBG PH 7.36 pH Units (7.32-7.42); VBG PO2 149 mmHg (25-50)
[2021-12-24 02:24] LABS: Calcium 8.7 mg/dL (8.6-10.3); Potassium 4.4 mEq/L (3.5-5.1)
[2021-12-24 06:19] LABS: VBG HCO3 24 mEq/L (21-27); VBG PCO2 42 mmHg (41-51); VBG PH 7.37 pH Units (7.32-7.42); VBG PO2 177 mmHg (25-50)
[2021-12-24 06:21] LABS: Basophils % 0.3 %; Eosinophils # 0.1 K/mcL (0.0-0.6); Eosinophils % 1.2 %; Hemoglobin 8.1 g/dL (12.9-16.9); Immature Granulocytes % 0.7 % (0-4); Lymphocytes # 1.8 K/mcL (0.6-4.6); Lymphocytes % 18.8 %; Mean Corpuscular HGB Conc 35.2 g/dL (31.6-35.5); Mean Corpuscular Hemoglobin 29.6 pg (28.0-33.3); Mean Corpuscular Volume 83.9 fL (83.0-100.0); Mean Platelet Volume 10.3 fL (9.4-12.4); Monocytes # 0.7 K/mcL (0.0-1.3); Monocytes % 7.8 %; Neutrophils # 6.7 K/mcL (1.6-8.9); Platelet Count 222 K/mcL (140-400); Red Blood Count 2.74 M/mcL (4.19-5.50); Red Cell Distribution Width 15.2 % (11.5-14.5); Segmented Neutrophils % 71.2 %; White Blood Count 9.4 K/mcL (4.3-11.1)
[2021-12-24 06:49] LABS: Calcium 8.3 mg/dL (8.6-10.3); Magnesium 2.1 mg/dL (1.6-2.6); Phosphorous 7.2 mg/dL (2.7-4.5); Potassium 4.2 mEq/L (3.5-5.1)
[2021-12-24] MEDS ORDERED: 0.9 % Sodium Chloride 250 ML IVC PRN (07:39)
[2021-12-24] MEDS ORDERED: 0.9 % Sodium Chloride 2,000 ML PRIME SCH (07:45)
[2021-12-24] MEDS: Insulin LISPRO 300 UNITS/3 ML VIAL SUBQ SCH ×6 (08:04→23:31)
[2021-12-24] MEDS: Bumetanide 1 MG/4 ML VIAL IVP SCH ×2 (08:35→17:32)
[2021-12-24] MEDS: Pantoprazole 40 MG VIAL IVP SCH (08:35)
[2021-12-24] MEDS: Topiramate 25 MG TABLET PO SCH (08:36)
[2021-12-24] MEDS: carvediloL 6.25 MG TABLET PO SCH ×2 (08:36→19:34)
[2021-12-24] MEDS: Acetaminophen 325 MG TABLET PO PRN (08:36)
[2021-12-24] MEDS ORDERED: *HR* Dextrose 50 % in Water (Vial) 50 ML VIAL IVP PRN (10:00)
[2021-12-24] MEDS ORDERED: 0.9 % Sodium Chloride 500 ML ONE (10:05)
[2021-12-24] MEDS ORDERED: *HR* FentaNYL (PF) 100 MCG/2 ML VIAL IVP ONE (10:20)
[2021-12-24] MEDS ORDERED: *HR* Midazolam HCl 2 MG/2 ML VIAL IVP ONE (10:20)
[2021-12-24] MEDS ORDERED: Clindamycin 600 MG/50 ML 600 MG/50 ML IV.SOLN IVPB ONE (10:21)
[2021-12-24] MEDS ORDERED: Heparin 1,000 UNITS/500 mL 500 ML ONE (10:33)
[2021-12-24] MEDS ORDERED: *HR* Heparin 5,000 UNIT/ML VIAL ONE (10:50)
[2021-12-24] MEDS: Ondansetron 4 MG/2 ML VIAL IVP PRN ×2 (12:39→19:36)
[2021-12-24] MEDS ORDERED: Gabapentin 100 MG CAPSULE PO ONE (21:00)
[2021-12-25 05:26] LABS: Basophils # 0.1 K/mcL (0.0-0.2); Basophils % 0.5 %; Eosinophils # 0.2 K/mcL (0.0-0.6); Eosinophils % 1.5 %; Hemoglobin 9.3 g/dL (12.9-16.9); Immature Granulocytes % 0.7 % (0-4); Lymphocytes # 1.7 K/mcL (0.6-4.6); Lymphocytes % 16.2 %; Mean Corpuscular HGB Conc 34.4 g/dL (31.6-35.5); Mean Corpuscular Hemoglobin 28.5 pg (28.0-33.3); Mean Corpuscular Volume 82.8 fL (83.0-100.0); Mean Platelet Volume 10.4 fL (9.4-12.4); Monocytes # 1.1 K/mcL (0.0-1.3); Neutrophils # 7.5 K/mcL (1.6-8.9); Platelet Count 302 K/mcL (140-400); Red Blood Count 3.26 M/mcL (4.19-5.50); Red Cell Distribution Width 15.2 % (11.5-14.5); Segmented Neutrophils % 71.1 %; White Blood Count 10.5 K/mcL (4.3-11.1)
[2021-12-25 05:47] LABS: Calcium 8.4 mg/dL (8.6-10.3); Phosphorous 5.9 mg/dL (2.7-4.5); Potassium 4.5 mEq/L (3.5-5.1)
[2021-12-25] MEDS: Insulin LISPRO 300 UNITS/3 ML VIAL SUBQ SCH ×3 (07:35→12:14)
[2021-12-25] MEDS: carvediloL 6.25 MG TABLET PO SCH (07:51)
[2021-12-25] MEDS: Topiramate 25 MG TABLET PO SCH (07:52)
[2021-12-25] MEDS: Bumetanide 1 MG/4 ML VIAL IVP SCH (07:53)
[2021-12-25] MEDS: Pantoprazole 40 MG VIAL IVP SCH (07:54)
[2021-12-25 11:58] VITALS: BP 153/84; TEMP 98.9; O2SAT 96
[2021-12-25 14:52] VITALS: PULSE 68
== END 2021-12-25 15:35 | disposition home or self-care (01) | DRG 637 ==
LOC: EMEROOARM 09:10 → 2NNU 15:35 → SUATTDRO 15:35 → 2NNU 17:07
PROVIDERS: ADMIT General Practice; ATTEND Student in an Organized Health Care Education/Training Program
PROC: IRPERMA (2021-12-24 12:00)

== ENCOUNTER 2022-03-19 13:20 | Inpatient (IN) ==
[2022-03-19 14:16] LABS: Basophils % 0.2 %; Eosinophils % 0.1 %; Hematocrit 21.4 % (37.5-50.1); Hemoglobin 7.6 g/dL (12.9-16.9); Immature Granulocytes % 0.5 % (0-4); Lymphocytes # 0.9 K/mcL (0.6-4.6); Lymphocytes % 5.3 %; Mean Corpuscular HGB Conc 35.5 g/dL (31.6-35.5); Mean Corpuscular Hemoglobin 29.7 pg (28.0-33.3); Mean Corpuscular Volume 83.6 fL (83.0-100.0); Mean Platelet Volume 10.4 fL (9.4-12.4); Monocytes # 1.2 K/mcL (0.0-1.3); Monocytes % 7.4 %; Neutrophils # 14.1 K/mcL (1.6-8.9); Platelet Count 160 K/mcL (140-400); Red Blood Count 2.56 M/mcL (4.19-5.50); Red Cell Distribution Width 14.5 % (11.5-14.5); Segmented Neutrophils % 86.5 %; White Blood Count 16.2 K/mcL (4.3-11.1)
[2022-03-19 14:39] LABS: Calcium 9.8 mg/dL (8.6-10.3); Potassium 6.2 mEq/L (3.5-5.1)
[2022-03-19 14:50] LABS: Troponin I 0.16 ng/mL (< 0.04)
[2022-03-19] MEDS ORDERED: Cefepime HCl 2,000 MG in 0.9 % Sodium Chloride 10 ML IVP ONE (16:30)
[2022-03-19] MEDS ORDERED: SODIUM ZIRCONIUM CYCLOSILICATE 5 GM POWD.PACK PO ONE (16:30)
[2022-03-19] MEDS ORDERED: Vancomycin 1,500 MG/265 ML IV.SOLN IVPB ONE (16:30)
[2022-03-19] MEDS ORDERED: MetroNIDAZOLE 500 MG/100 ML BAG IVPB ONE (16:35)
[2022-03-19] MEDS ORDERED: Iopamidol - 370 500 ML MLS IVP ONE (16:40)
[2022-03-19 16:53] LABS: VBG HCO3 25 mEq/L (21-27); VBG PCO2 29 mmHg (41-51); VBG PH 7.55 pH Units (7.32-7.42); VBG PO2 121 mmHg (25-50)
[2022-03-19] MEDS ORDERED: Acetaminophen IV 1,000 MG/100 ML BAG IVPB ONE (17:03)
[2022-03-19] MEDS ORDERED: Perit. Dialysis with Dex 2.5 % 12,000 ML PERITONEAL ONE (19:00)
[2022-03-19] MEDS ORDERED: Naloxone 0.4 MG/ML INJ IVP PRN (19:34)
[2022-03-19] MEDS ORDERED: Ondansetron 4 MG/2 ML VIAL IVP PRN (19:34)
[2022-03-19] MEDS ORDERED: *HR* Dextrose 50 % in Water (Syg) 50 ML SYRINGE IVP PRN (21:22)
[2022-03-19] MEDS ORDERED: D5% in Water 1,000 ML IVC PRN (21:22)
[2022-03-19] MEDS ORDERED: Dextrose Gel 15 GM/37.5 ML TUBE PO PRN ×2 (21:22)
[2022-03-19] MEDS ORDERED: Vancomycin 1 EACH in 0.9 % Sodium Chloride 250 ML IVPB PRN (22:00)
[2022-03-19 22:39] LABS: RBC,Peritoneal Fluid < 2000 RBC/mcL
[2022-03-19 22:48] LABS: Appearance of Peritoneal Fl CLEAR (Clear)
[2022-03-19 22:56] LABS: Total Protein,Peritoneal Fluid 2.6 g/dL
[2022-03-19 23:40] LABS: Basophils,Peritoneal Fluid 0 %; Eosinophils,Peritoneal Fluid 0 %
[2022-03-20] MEDS ORDERED: MetroNIDAZOLE 500 MG/100 ML 500 MG/100 ML BAG IVPB SCH ×2 (00:25→13:00)
[2022-03-20 01:41] LABS: Adenovirus Not Detected (Not Detect); Bordetella Pertussis Not Detected (Not Detect); Chlamydophila pneumoniae Not Detected (Not Detect); Coronavirus 229E Not Detected (Not Detect); Coronavirus HKU1 Not Detected (Not Detect); Coronavirus NL63 Not Detected (Not Detect); Coronavirus OC43 Not Detected (Not Detect); Human Metapneumovirus Not Detected (Not Detect); Human Rhinovirus/Enterovirus Not Detected (Not Detect); Influenza A Subtype 2009 H1 Not Detected (Not Detect); Influenza B Not Detected (Not Detect); Mycoplasma pneumoniae Not Detected (Not Detect); Parainfluenza Virus 1 Not Detected (Not Detect); Parainfluenza Virus 2 Not Detected (Not Detect); Parainfluenza Virus 3 Not Detected (Not Detect); Parainfluenza Virus 4 Not Detected (Not Detect); Respiratory Syncytial Virus Not Detected (Not Detect); SARS-CoV-2 Not Detected (Not Detect)
[2022-03-20 03:49] LABS: VBG HCO3 27 mEq/L (21-27); VBG PCO2 36 mmHg (41-51); VBG PH 7.48 pH Units (7.32-7.42); VBG PO2 97 mmHg (25-50)
[2022-03-20 04:05] LABS: Basophils % 0.3 %; Eosinophils # 0.3 K/mcL (0.0-0.6); Eosinophils % 1.8 %; Hematocrit 18.6 % (37.5-50.1); Hemoglobin 6.7 g/dL (12.9-16.9); Immature Granulocytes % 0.6 % (0-4); Lymphocytes % 6.9 %; Mean Corpuscular Hemoglobin 29.8 pg (28.0-33.3); Mean Corpuscular Volume 82.7 fL (83.0-100.0); Mean Platelet Volume 11.1 fL (9.4-12.4); Monocytes # 1.7 K/mcL (0.0-1.3); Monocytes % 12.1 %; Neutrophils # 10.9 K/mcL (1.6-8.9); Platelet Count 145 K/mcL (140-400); Red Blood Count 2.25 M/mcL (4.19-5.50); Red Cell Distribution Width 14.4 % (11.5-14.5); Segmented Neutrophils % 78.3 %; White Blood Count 13.9 K/mcL (4.3-11.1)
[2022-03-20 04:19] LABS: Calcium 9.1 mg/dL (8.6-10.3); Magnesium 2.5 mg/dL (1.6-2.6); Phosphorous 9.1 mg/dL (2.7-4.5); Potassium 5.1 mEq/L (3.5-5.1)
[2022-03-20] MEDS: *HR* Heparin 5,000 UNIT/ML VIAL SQ SCH ×4 (04:40→21:08)
[2022-03-20] MEDS ORDERED: 0.9 % Sodium Chloride 250 ML IVC SCH (08:00)
[2022-03-20] MEDS: Insulin LISPRO 300 UNITS/3 ML VIAL SUBQ SCH ×2 (08:34→12:22)
[2022-03-20] MEDS: Topiramate 25 MG TABLET PO SCH (08:35)
[2022-03-20] MEDS: Sucroferric Oxyhydroxide [Velphoro] 500 MG PO SCH ×3 (08:35→21:09)
[2022-03-20] MEDS: carvediloL 6.25 MG TABLET PO SCH ×2 (08:35→18:02)
[2022-03-20] MEDS: Gabapentin 100 MG CAPSULE PO SCH ×3 (08:35→21:18)
[2022-03-20] MEDS: Bumetanide 1 MG TABLET PO SCH ×2 (08:35→18:05)
[2022-03-20] MEDS ORDERED: Furosemide 20 MG/2 ML VIAL IVP ONE (10:00)
[2022-03-20 11:43] LABS: A.calcoaceticus-baumannii cplx Not Detected (Not Detect); Bacteroides fragilis by PCR Not Detected (Not Detect); CTX-M ESBL Gene Not Detected (Not Detect); Candida albicans by PCR Not Detected (Not Detect); Candida auris by PCR Not Detected (Not Detect); Candida glabrata by PCR Not Detected (Not Detect); Candida krusei by PCR Not Detected (Not Detect); Candida parapsilosis by PCR Not Detected (Not Detect); Candida tropicalis by PCR Not Detected (Not Detect); Crypto. neoformans/gattii PCR Not Detected (Not Detect); Enterobacter cloacae Cmplx PCR Not Detected (Not Detect); Enterobacterales by PCR Not Detected (Not Detect); Enterococcus faecalis by PCR Not Detected (Not Detect); Enterococcus faecium by PCR Not Detected (Not Detect); Escherichia coli by PCR Not Detected (Not Detect); IMP Carbapenem-Resist Gene Not Detected (Not Detect); Klebs. pneumoniae group by PCR Not Detected (Not Detect); Klebsiella aerogenes by PCR Not Detected (Not Detect); Klebsiella oxytoca by PCR Not Detected (Not Detect); NDM Carbapenem-Resist Gene Not Detected (Not Detect); Proteus by PCR Not Detected (Not Detect); Pseudomonas aeruginosa by PCR DETECTED (Not Detect); Salmonella species by PCR Not Detected (Not Detect); Serratia marcescens by PCR Not Detected (Not Detect); Staph epidermidis by PCR Not Detected (Not Detect); Staph lugdunensis by PCR Not Detected (Not Detect); Staphylococcus aureus by PCR Not Detected (Not Detect); Staphylococcus by PCR Not Detected (Not Detect); Stenotrophomonas maltophilia Not Detected (Not Detect); Streptococcus agalactiae(B)PCR Not Detected (Not Detect); Streptococcus by PCR Not Detected (Not Detect); Streptococcus pneumoniae PCR Not Detected (Not Detect); Streptococcus pyogenes (A) PCR Not Detected (Not Detect); VIM Carbapenem-Resist Gene Not Detected (Not Detect); blaKPC Carbapenem-Resist Gene Not Detected (Not Detect)
[2022-03-20] MEDS: Acetaminophen 325 MG TABLET PO PRN ×2 (12:21→21:07)
[2022-03-20] MEDS ORDERED: Cefepime HCl 1,000 MG in 0.9 % Sodium Chloride 10 ML IVP SCH (16:00)
[2022-03-20 17:46] LABS: Hematocrit 21.2 % (37.5-50.1); Hemoglobin 7.6 g/dL (12.9-16.9)
[2022-03-20] MEDS: [UNRECOGNIZED DRUG - OTHER] SUBQ SCH (18:04)
[2022-03-20] MEDS: Piperacillin/Tazobactam 3.375 GM in 0.9 % Sodium Chloride Mini Bag 100 ML IVPB SCH ×2 (18:05→18:24)
[2022-03-20] MEDS ORDERED: Perit. Dialysis with Dex 2.5 % 12,000 ML PERITONEAL ONE (19:00)
[2022-03-20] MEDS: Gentamicin Oint 15 GM TUBE TP SCH (23:58)
[2022-03-21 03:43] LABS: Basophils % 0.3 %; Eosinophils # 0.5 K/mcL (0.0-0.6); Hematocrit 19.7 % (37.5-50.1); Immature Granulocytes % 0.8 % (0-4); Lymphocytes # 1.2 K/mcL (0.6-4.6); Lymphocytes % 10.6 %; Mean Corpuscular HGB Conc 35.5 g/dL (31.6-35.5); Mean Corpuscular Volume 81.7 fL (83.0-100.0); Mean Platelet Volume 11.5 fL (9.4-12.4); Monocytes # 1.8 K/mcL (0.0-1.3); Monocytes % 15.8 %; Platelet Count 170 K/mcL (140-400); Red Blood Count 2.41 M/mcL (4.19-5.50); Red Cell Distribution Width 14.3 % (11.5-14.5); Segmented Neutrophils % 68.5 %; White Blood Count 11.6 K/mcL (4.3-11.1)
[2022-03-21 04:09] LABS: Calcium 9.1 mg/dL (8.6-10.3); Potassium 4.9 mEq/L (3.5-5.1)
[2022-03-21] MEDS: *HR* Heparin 5,000 UNIT/ML VIAL SQ SCH ×3 (05:53→21:12)
[2022-03-21] MEDS: Piperacillin/Tazobactam 3.375 GM in 0.9 % Sodium Chloride Mini Bag 100 ML IVPB SCH (05:53)
[2022-03-21] MEDS ORDERED: Darbepoetin 100 MCG/0.5 ML SYRINGE SQ SCH (11:30)
[2022-03-21] MEDS: Bumetanide 1 MG TABLET PO SCH ×2 (11:35→15:56)
[2022-03-21] MEDS: carvediloL 6.25 MG TABLET PO SCH ×2 (11:35→15:56)
[2022-03-21] MEDS: Topiramate 25 MG TABLET PO SCH (11:35)
[2022-03-21] MEDS: Gabapentin 100 MG CAPSULE PO SCH ×3 (11:35→21:10)
[2022-03-21] MEDS: Sucroferric Oxyhydroxide [Velphoro] 500 MG PO SCH (11:36)
[2022-03-21] MEDS: Gentamicin Oint 15 GM TUBE TP SCH ×2 (11:36→21:24)
[2022-03-21] MEDS ORDERED: Cefepime HCl 1,000 MG in 0.9 % Sodium Chloride 10 ML IVPB SCH (15:00)
[2022-03-21] MEDS: [UNRECOGNIZED DRUG - OTHER] SUBQ SCH (15:58)
[2022-03-21] MEDS: Cefepime HCl 1,000 MG in 0.9 % Sodium Chloride 10 ML IVPB SCH (17:38)
[2022-03-21 18:27] LABS: Bilirubin,Urine Negative (Negative); Blood,Urine Moderate (Negative); Clarity,Urine Clear (Clear); Color,Urine Light-Yellow (Yellow); Glucose,Urine (UA) >=1000 mg/dL (Normal); Ketones,Urine Negative (Negative); Leukocyte Esterase,Urine Negative (Negative); Nitrite,Urine Negative (Negative); Protein,Urine >=600 mg/dL (Neg-Trace); Specific Gravity,Urine 1.014 (1.010-1.025); Squamous Epithelial Cell,Urine Few per hpf (None-Few); Urobilinogen,Urine Normal (Normal)
[2022-03-21] MEDS ORDERED: Perit. Dialysis with Dex 2.5 % 12,000 ML PERITONEAL ONE (19:00)
[2022-03-21] MEDS ORDERED: GuaiFENesin Liq 200 MG/10 ML UDC PO PRN (21:10)
[2022-03-22 04:35] LABS: Appearance of Peritoneal Fl CLEAR (Clear); RBC,Peritoneal Fluid < 2000 RBC/mcL
[2022-03-22 05:32] LABS: Basophils,Peritoneal Fluid 0 %; Eosinophils,Peritoneal Fluid 0 %
[2022-03-22] MEDS: *HR* Heparin 5,000 UNIT/ML VIAL SQ SCH ×3 (05:32→20:14)
[2022-03-22 06:14] LABS: % Iron Saturation 69 % (20-55); Iron 127 mcg/dL (65-175); Transferrin 132 mg/dL (203-362)
[2022-03-22 06:30] LABS: Ferritin 1127 ng/mL (20-250)
[2022-03-22] MEDS: Topiramate 25 MG TABLET PO SCH (10:20)
[2022-03-22] MEDS: Gabapentin 100 MG CAPSULE PO SCH ×3 (10:20→20:15)
[2022-03-22] MEDS: carvediloL 6.25 MG TABLET PO SCH ×2 (10:20→15:59)
[2022-03-22] MEDS: Bumetanide 1 MG TABLET PO SCH ×2 (10:20→15:59)
[2022-03-22 10:30] LABS: Basophils % 0.5 %; Eosinophils # 0.5 K/mcL (0.0-0.6); Eosinophils % 6.3 %; Hematocrit 22.9 % (37.5-50.1); Hemoglobin 8.1 g/dL (12.9-16.9); Immature Granulocytes % 1.9 % (0-4); Lymphocytes # 1.7 K/mcL (0.6-4.6); Lymphocytes % 22.1 %; Mean Corpuscular HGB Conc 35.4 g/dL (31.6-35.5); Mean Corpuscular Hemoglobin 29.1 pg (28.0-33.3); Mean Corpuscular Volume 82.4 fL (83.0-100.0); Mean Platelet Volume 10.9 fL (9.4-12.4); Monocytes # 1.2 K/mcL (0.0-1.3); Monocytes % 15.4 %; Neutrophils # 4.2 K/mcL (1.6-8.9); Platelet Count 213 K/mcL (140-400); Red Blood Count 2.78 M/mcL (4.19-5.50); Red Cell Distribution Width 14.2 % (11.5-14.5); Segmented Neutrophils % 53.8 %; White Blood Count 7.8 K/mcL (4.3-11.1)
[2022-03-22 10:45] LABS: Albumin 3.1 g/dL (3.5-5.7); Albumin/Globulin Ratio 1.2 (1.1-2.2); Bilirubin,Total 0.4 mg/dL (0.3-1.0); Calcium 8.9 mg/dL (8.6-10.3); Globulin 2.6 g/dL (2.4-3.5); Potassium 4.6 mEq/L (3.5-5.1); Total Protein 5.7 g/dL (6.4-8.9)
[2022-03-22] MEDS ORDERED: Patient Taking Own Medication 1 EACH SUBQ SCH (12:29)
[2022-03-22] MEDS: Sucroferric Oxyhydroxide [Velphoro] 500 MG PO SCH ×2 (13:20→16:00)
[2022-03-22] MEDS: [UNRECOGNIZED DRUG - OTHER] SUBQ SCH (14:35)
[2022-03-22] MEDS: Cefepime HCl 1,000 MG in 0.9 % Sodium Chloride 10 ML IVPB SCH (16:00)
[2022-03-22] MEDS ORDERED: Perit. Dialysis with Dex 2.5 % 12,000 ML PERITONEAL ONE (19:00)
[2022-03-23 01:32] LABS: Basophils # 0.1 K/mcL (0.0-0.2); Basophils % 0.6 %; Eosinophils # 0.6 K/mcL (0.0-0.6); Hematocrit 24.1 % (37.5-50.1); Hemoglobin 8.5 g/dL (12.9-16.9); Immature Granulocytes % 2.7 % (0-4); Lymphocytes # 2.4 K/mcL (0.6-4.6); Lymphocytes % 25.2 %; Mean Corpuscular HGB Conc 35.3 g/dL (31.6-35.5); Mean Corpuscular Volume 82.3 fL (83.0-100.0); Mean Platelet Volume 10.9 fL (9.4-12.4); Monocytes # 1.1 K/mcL (0.0-1.3); Monocytes % 11.7 %; Neutrophils # 5.1 K/mcL (1.6-8.9); Platelet Count 265 K/mcL (140-400); Red Blood Count 2.93 M/mcL (4.19-5.50); Segmented Neutrophils % 53.8 %; White Blood Count 9.5 K/mcL (4.3-11.1)
[2022-03-23 01:50] LABS: Potassium 4.7 mEq/L (3.5-5.1)
[2022-03-23 01:51] LABS: Calcium 8.9 mg/dL (8.6-10.3)
[2022-03-23] MEDS: *HR* Heparin 5,000 UNIT/ML VIAL SQ SCH ×3 (06:59→21:30)
[2022-03-23] MEDS: Gabapentin 100 MG CAPSULE PO SCH ×3 (10:09→21:30)
[2022-03-23] MEDS: Bumetanide 1 MG TABLET PO SCH ×2 (10:09→16:35)
[2022-03-23] MEDS: carvediloL 6.25 MG TABLET PO SCH ×2 (10:09→16:36)
[2022-03-23] MEDS: Topiramate 25 MG TABLET PO SCH (10:09)
[2022-03-23] MEDS: Gentamicin Oint 15 GM TUBE TP SCH (10:10)
[2022-03-23] MEDS: Sucroferric Oxyhydroxide [Velphoro] 500 MG PO SCH ×3 (10:19→16:35)
[2022-03-23] MEDS: [UNRECOGNIZED DRUG - OTHER] SUBQ SCH (14:42)
[2022-03-23] MEDS: Cefepime HCl 1,000 MG in 0.9 % Sodium Chloride 10 ML IVPB SCH (16:34)
[2022-03-23] MEDS ORDERED: Perit. Dialysis with Dex 2.5 % 12,000 ML PERITONEAL ONE (19:30)
[2022-03-24 03:38] LABS: Basophils # 0.1 K/mcL (0.0-0.2); Basophils % 0.7 %; Eosinophils # 0.5 K/mcL (0.0-0.6); Eosinophils % 4.1 %; Hematocrit 24.8 % (37.5-50.1); Hemoglobin 8.7 g/dL (12.9-16.9); Immature Granulocytes % 4.1 % (0-4); Lymphocytes # 3.1 K/mcL (0.6-4.6); Lymphocytes % 25.7 %; Mean Corpuscular HGB Conc 35.1 g/dL (31.6-35.5); Mean Corpuscular Hemoglobin 28.6 pg (28.0-33.3); Mean Corpuscular Volume 81.6 fL (83.0-100.0); Monocytes # 1.4 K/mcL (0.0-1.3); Monocytes % 11.3 %; Neutrophils # 6.5 K/mcL (1.6-8.9); Platelet Count 294 K/mcL (140-400); Red Blood Count 3.04 M/mcL (4.19-5.50); Segmented Neutrophils % 54.1 %; White Blood Count 12.1 K/mcL (4.3-11.1)
[2022-03-24 03:58] LABS: Calcium 9.4 mg/dL (8.6-10.3); Potassium 4.3 mEq/L (3.5-5.1)
[2022-03-24] MEDS: *HR* Heparin 5,000 UNIT/ML VIAL SQ SCH ×3 (06:03→20:24)
[2022-03-24] MEDS: Sucroferric Oxyhydroxide [Velphoro] 500 MG PO SCH ×4 (07:55→16:58)
[2022-03-24] MEDS: Topiramate 25 MG TABLET PO SCH (09:36)
[2022-03-24] MEDS: Gabapentin 100 MG CAPSULE PO SCH ×3 (09:36→20:24)
[2022-03-24] MEDS: carvediloL 6.25 MG TABLET PO SCH ×3 (09:36→17:11)
[2022-03-24] MEDS: Gentamicin Oint 15 GM TUBE TP SCH (09:37)
[2022-03-24] MEDS: Bumetanide 1 MG TABLET PO SCH ×2 (09:37→16:58)
[2022-03-24 11:10] LABS: Phosphorous 9.2 mg/dL (2.7-4.5)
[2022-03-24] MEDS: [UNRECOGNIZED DRUG - OTHER] SUBQ SCH (15:28)
[2022-03-24] MEDS: Cefepime HCl 1,000 MG in 0.9 % Sodium Chloride 10 ML IVPB SCH (15:28)
[2022-03-24] MEDS ORDERED: PERIT DIALYSIS WITH DEX 2.5% PERITONEAL ONE (19:00)
[2022-03-25 02:58] LABS: Hematocrit 23.7 % (37.5-50.1); Hemoglobin 8.5 g/dL (12.9-16.9); Mean Corpuscular HGB Conc 35.9 g/dL (31.6-35.5); Mean Corpuscular Hemoglobin 29.4 pg (28.0-33.3); Nucleated Red Blood Cells 0.3 /100 WBC (0); Platelet Count 324 K/mcL (140-400); Red Blood Count 2.89 M/mcL (4.19-5.50); Red Cell Distribution Width 14.2 % (11.5-14.5); White Blood Count 12.6 K/mcL (4.3-11.1)
[2022-03-25 03:16] LABS: Calcium 9.1 mg/dL (8.6-10.3); Potassium 4.3 mEq/L (3.5-5.1)
[2022-03-25 05:00] LABS: Eosinophils # 0.8 K/mcL (0.0-0.6); Lymphocytes # 2.5 K/mcL (0.6-4.6); Monocytes # 1.3 K/mcL (0.0-1.3); Neutrophils # 8.1 K/mcL (1.6-8.9); Platelet Estimate Normal (Normal)
[2022-03-25] MEDS: *HR* Heparin 5,000 UNIT/ML VIAL SQ SCH ×2 (05:30→12:40)
[2022-03-25] MEDS: carvediloL 6.25 MG TABLET PO SCH (08:30)
[2022-03-25] MEDS: Bumetanide 1 MG TABLET PO SCH (08:30)
[2022-03-25] MEDS: Gabapentin 100 MG CAPSULE PO SCH (08:30)
[2022-03-25] MEDS: Topiramate 25 MG TABLET PO SCH (08:30)
[2022-03-25] MEDS: Sucroferric Oxyhydroxide [Velphoro] 500 MG PO SCH (08:32)
[2022-03-25] MEDS: Gentamicin Oint 15 GM TUBE TP SCH (10:37)
[2022-03-25 11:18] VITALS: BP 93/54; PULSE 87; TEMP 98.2; O2SAT 93
[2022-03-25 12:18] LABS: Thyroid Stimulating Hormone 4.349 mcIU/mL (0.340-5.600)
[2022-03-25] MEDS ORDERED: PERIT DIALYSIS WITH DEX 2.5% PERITONEAL ONE (17:00)
== END 2022-03-25 16:37 | disposition home or self-care (01) | DRG 871 ==
LOC: SUATTDRO → EMEROOARM 13:20 → 2ANU 13:20 → SUATTDRO 19:27 → 2ANU 20:13
PROVIDERS: ADMIT Internal Medicine; ATTEND Hospitalist